=== PATIENT | female | born 1995 | race Caucasian/White ===

== ENCOUNTER 2016-05-04 13:52 | Emergency (ER) | payer OTHER ==
[2016-05-04 15:11] LABS: HEMOGLOBIN 13.7 gm/dl (12.3-15.3); RED BLOOD COUNT 4.79 M/UL (4.00-5.10); WHITE BLOOD COUNT 5.9 K/UL (4.5-11.0)
[2016-05-04 15:31] LABS: BUN/CREATININE RATIO 15 (0-10)
== END 2016-05-04 17:00 | disposition home or self-care (01) ==
LOC: ER1 13:52
PROVIDERS: Physician Assistant
DX: N30.00 Acute cystitis without hematuria (principal)
CPT/HCPCS: 36415; 71010; 80053; 81001; 82150; 83605; 83690; 84703; 85025; 86403; 87040; 87081; 87086; 87880; 93005; 96374; 96375; 96376; 99284; J0696; J2405; J7040; J7050; Q9962

== ENCOUNTER → 2016-07-22 | Outpatient (CLI) | payer OTHER | LOC: US 09:11 | DX: R10.11 Right upper quadrant pain (principal) | CPT/HCPCS: 76705 ==

== ENCOUNTER → 2016-08-12 | Outpatient (CLI) | payer OTHER | LOC: NM 08-11 13:00 | DX: R10.11 Right upper quadrant pain (principal) | CPT/HCPCS: 78226; A9537 ==